=== PATIENT | female | born 1980 | race Caucasian/White ===

== ENCOUNTER → 2020-10-04 | Outpatient (REF) | LOC: M LABSMTC 09:59 | PROVIDERS: ATTEND Pediatrics | DX: Z11.52 Encounter for screening for COVID-19 (principal) ==

== ENCOUNTER → 2020-12-08 | Outpatient (REF) | LOC: M LABSMTC 10:34 | PROVIDERS: ATTEND Pediatrics | DX: Z20.822 Contact with and (suspected) exposure to COVID-19 (principal) ==

== ENCOUNTER → 2021-03-28 | Outpatient (REF) | LOC: M LABSMTC 12:27 | PROVIDERS: ATTEND Pediatrics | DX: Z20.828 Contact with and (suspected) exposure to other viral communicable diseases (principal); Z11.59 Encounter for screening for other viral diseases ==

== ENCOUNTER 2021-12-23 13:38 | Emergency (ER) | payer BC, SELFPAY ==
[~2021-12-23] VITALS: Ht 154.9 cm; Wt 90.5 kg
[2021-12-23] MEDS ORDERED: SAXE1INJ (13:43)
[2021-12-23] MEDS ORDERED: MIRE1IUD IU (13:45)
[2021-12-23 16:55] VITALS: BP 106/78
== END 2021-12-23 16:58 | disposition home or self-care (01) ==
LOC: M ED 13:38
DX: S86.112A Strain of other muscle(s) and tendon(s) of posterior muscle group at lower leg level, left leg, initial encounter (principal); X50.0XXA Overexertion from strenuous movement or load, initial encounter; F17.200 Nicotine dependence, unspecified, uncomplicated; Y92.009 Unspecified place in unspecified non-institutional (private) residence as the place of occurrence of the external cause; Y93.9 Activity, unspecified; Y99.9 Unspecified external cause status; Z88.0 Allergy status to penicillin; Z88.8 Allergy status to other drugs, medicaments and biological substances

== ENCOUNTER → 2022-06-28 | Outpatient (CLI) | payer BC ==
[~2022-06-28] MED LIST: MIRE1IUD IU; SAXE1INJ
== END ==
LOC: M WHC 09:26
PROVIDERS: ATTEND Orthopaedic Surgery
DX: Z13.820 Encounter for screening for osteoporosis (principal); M85.851 Other specified disorders of bone density and structure, right thigh

== ENCOUNTER → 2022-07-09 | Outpatient (CLI) | payer BC ==
[2022-07-09 19:15] LABS: CHLORIDE LEVEL 104 MMOL/L (98-107); POTASSIUM SERUM 4.3 MMOL/L (3.5-5.1); SODIUM LEVEL 141 MMOL/L (136-145)
[2022-07-09 19:16] LABS: ALBUMIN 4.1 G/DL (3.2-5.2); CARBON DIOXIDE LEVEL 30 MMOL/L (20-31)
[2022-07-09 19:21] LABS: ALKALINE PHOSPHATASE 85 U/L (46-116); BLOOD UREA NITROGEN 19 MG/DL (9-23); CALCIUM LEVEL 9.6 MG/DL (8.5-10.1); GLUCOSE, FASTING 88 MG/DL (60-100)
[2022-07-09 19:23] LABS: ALT/SGPT 28 U/L (7.0-40); AST/SGOT 19 U/L (<34); BILIRUBIN,TOTAL 0.2 MG/DL (0.3-1.2); CREATININE FOR GFR 0.77 MG/DL (0.55-1.30); GLOMERULAR FILTRATION RATE > 60.0 (>60); TOTAL PROTEIN 7.2 G/DL (5.7-8.2)
[2022-07-09 19:27] LABS: FREE T4 0.93 NG/DL (0.89-1.76)
[2022-07-09 19:29] LABS: THYROID STIMULATING HORMONE 1.776 uIU/ML (0.55-4.78)
[2022-07-09 19:30] LABS: TOTAL 25(OH) VITAMIN D 30.8 NG/ML (20.0-100.0)
== END ==
LOC: M LAB 16:06 → M RAD 16:06
PROVIDERS: ATTEND Orthopaedic Surgery
DX: S83.512D Sprain of anterior cruciate ligament of left knee, subsequent encounter (principal)

== ENCOUNTER → 2022-08-19 | Outpatient (REF) | LOC: M EMP 13:53 | PROVIDERS: ATTEND Family Medicine | DX: Z11.52 Encounter for screening for COVID-19 (principal) ==

== ENCOUNTER → 2023-06-04 | Outpatient (CLI) | payer BC | LOC: M WUC 08:37 | PROVIDERS: ATTEND Student in an Organized Health Care Education/Training Program | DX: M25.551 Pain in right hip (principal) ==

== ENCOUNTER → 2023-10-16 | Outpatient (CLI) | payer BC | LOC: M RAD 07:11 | PROVIDERS: ATTEND Orthopaedic Surgery | DX: M54.59 Other low back pain (principal) ==